=== PATIENT | female | born 1995 | race Caucasian/White ===

== ENCOUNTER 2016-10-30 07:52 | Emergency (ER) | payer BC ==
[~2016-10-30] VITALS: Ht 154.9 cm; Wt 62.0 kg
[2016-10-30 07:55] VITALS: BP 138/74; PULSE 99; RESP 16; TEMP 98.1; O2SAT 100
[2016-10-30 08:04] VITALS: BP 125/64; PULSE 96; RESP 16; TEMP 98; O2SAT 98
[2016-10-30] MEDS ORDERED: PROG200C PO (08:16)
[2016-10-30] MEDS ORDERED: SODIUM CHLOR 0.9% 1000 ML INJ 1,000 ML IV ONE (08:30)
[2016-10-30 08:42] LABS: BASOPHIL # 0.2 TH/MM3 (0-0.2); EOSINOPHIL # 0.9 TH/MM3 (0-0.4); EOSINOPHIL % 8.3 % (0.0-4.0); HEMATOCRIT 37.5 % (35.0-46.0); HEMO FLAGS DIFF FINAL; LYMPH % 25.4 % (9.0-44.0); LYMPHOCYTE # 2.6 TH/MM3 (1.0-4.8); MEAN CELL VOLUME 84.2 FL (80.0-100.0); MEAN CORPUSCULAR HEMOGLOBIN 28.3 PG (27.0-34.0); MEAN CORPUSCULAR HGB CONC 33.6 % (32.0-36.0); MONO % 6.2 % (0.0-8.0); NEUT % 58.1 % (16.0-70.0); PLATELET COUNT 212 TH/MM3 (150-450); RED BLOOD COUNT 4.46 MIL/MM3 (4.00-5.30); RED CELL DISTRIBUTION WIDTH 12.8 % (11.6-17.2); WHITE BLOOD COUNT 10.4 TH/MM3 (4.0-11.0)
[2016-10-30 08:56] LABS: BICARBONATE 23.7 MEQ/L (21.0-32.0); POTASSIUM 3.5 MEQ/L (3.5-5.1)
[2016-10-30 09:00] VITALS: BP 112/78; PULSE 86; RESP 16; O2SAT 100
--- NOTE | 2016-10-30 09:16 | PD ---
HPI Chief Complaint: Syncope/Near-Syncope Time Seen by Provider: 08:17 Travel History International Travel<30 days: No Contact w/Intl Traveler<30days: No Traveled to known affect area: No History of Present Illness HPI The 21 year-old woman who presents to the emergency department after apparent syncopal episode at work. 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 Coworkers called her and lowered her to the ground. Did not reportedly strike her head. Patient does not recall the incident, but woke up with people standing around her. She's not had previous similar symptoms. She's not been feeling well because she's been having significant morning sickness with vomiting and retching for the past couple weeks. She went to an urgent care recently and was given a prescription for Reglan as well as for pyridoxine/Unisom. Pyridoxine/Unisom is not work for in the past, and she talked to family members she said she should not take the Reglan while she was . History Past Medical History Medical History: Denies Significant Hx LMP: 08/31/16 : 2 Para: 0 Past Surgical History Surgical History: No Previous Surgery Social History Alcohol Use: No Tobacco Use: No Allergies-Medications (Allergen,Severity, Reaction): Coded Allergies: Codeine (Verified Allergy, Intermediate, 10/30/16) vomiting Reported Meds & Prescriptions Reported Meds & Active Scripts Active Reported Progesterone Micronized 200 Mg Cap 200 Mg PO HS Review of Systems Except as stated in HPI: all other systems reviewed are Neg Physical Exam Narrative GENERAL: Well-appearing 21 year-old woman, no acute distress. SKIN: Warm and dry. CARDIOVASCULAR: Regular rate and rhythm. No murmur appreciated. RESPIRATORY: No accessory muscle use. Clear to auscultation. Breath sounds equal bilaterally. GASTROINTESTINAL: Abdomen soft, non-tender, nondistended. Hepatic and splenic margins not palpable. MUSCULOSKELETAL: No obvious deformities. No clubbing. No cyanosis. No edema. NEUROLOGICAL: Awake and alert. No obvious cranial nerve deficits. Motor grossly within normal limits. Normal speech. PSYCHIATRIC: Appropriate mood and affect; insight and judgment normal. Data Data Last Documented VS Vital Signs Date Time Temp Pulse Resp B/P Pulse Ox O2 Delivery O2 Flow Rate FiO2 10/30/16 08:11 16 100 Room Air 10/30/16 08:04 98.0 96 125/64 Orders Electrocardiogram (10/30/16 ) Complete Blood Count With Diff (10/30/16 08:17) Basic Metabolic Panel (Bmp) (10/30/16 08:17) Ed Poc Ultrasound (10/30/16 ) Urinalysis - C+S If Indicated (10/30/16 08:17) Iv Access Insert/Monitor (10/30/16 08:17) Sodium Chlor 0.9% 1000 Ml Inj (Ns 1000 M (10/30/16 08:30) Labs Laboratory Tests Test 10/30/16 10/30/16 08:15 08:55 White Blood Count 10.4 TH/MM3 Red Blood Count 4.46 MIL/MM3 Hemoglobin 12.6 GM/DL Hematocrit 37.5 % Mean Corpuscular Volume 84.2 FL Mean Corpuscular Hemoglobin 28.3 PG Mean Corpuscular Hemoglobin 33.6 % Concent Red Cell Distribution Width 12.8 % Platelet Count 212 TH/MM3 Mean Platelet Volume 10.3 FL Neutrophils (%) (Auto) 58.1 % Lymphocytes (%) (Auto) 25.4 % Monocytes (%) (Auto) 6.2 % Eosinophils (%) (Auto) 8.3 % Basophils (%) (Auto) 2.0 % Neutrophils # (Auto) 6.0 TH/MM3 Lymphocytes # (Auto) 2.6 TH/MM3 Monocytes # (Auto) 0.6 TH/MM3 Eosinophils # (Auto) 0.9 TH/MM3 Basophils # (Auto) 0.2 TH/MM3 CBC Comment DIFF FINAL Differential Comment Sodium Level 138 MEQ/L Potassium Level 3.5 MEQ/L Chloride Level 105 MEQ/L Carbon Dioxide Level 23.7 MEQ/L Anion Gap 9 MEQ/L Blood Urea Nitrogen 10 MG/DL Creatinine 0.63 MG/DL Estimat Glomerular Filtration 120 ML/MIN Rate Random Glucose 77 MG/DL Calcium Level 8.7 MG/DL Urine Color LIGHT-YELLOW Urine Turbidity CLEAR Urine pH 6.5 Urine Specific [place] 1.007 Urine Protein NEG mg/dL Urine Glucose (UA) NEG mg/dL Urine Ketones NEG mg/dL Urine Occult Blood NEG Urine Nitrite NEG Urine Bilirubin NEG Urine Urobilinogen LESS THAN 2.0 MG/DL Urine Leukocyte Esterase NEG Urine RBC 1 /hpf Urine WBC 1 /hpf Urine Squamous Epithelial 1 /hpf Cells Urine Bacteria RARE /hpf Urine Mucus FEW /lpf Microscopic Urinalysis Comment CULT NOT INDICATED MDM Medical Decision Making Medical Screen Exam Complete: Yes Emergency Medical Condition: Yes Interpretation(s) My review of EKG: Normal sinus rhythm at a rate of 85, normal axis, normal intervals, no acute ischemia. LABS: CBC is unremarkable. BMP is unremarkable. UA is unremarkable. Differential Diagnosis Syncope, lightheadedness, anemia, UTI, electrolyte abnormality, ectopic, other Narrative Course Medical decision making INITIAL: This a 21-year-old woman who presents to the emergency department after apparent syncopal episode. She's been on monitor with nausea and vomiting in the setting of morning sickness. Bedside ultrasound is reassuring. No cramping bleeding or vaginal discharge or other evidence of problems . No shortness of breath or leg swelling to suggest PE. We'll check labs, EKG, likely discharge. Procedures Procedure Narrative Point of care ultrasound: Focus transabdominal ultrasounds performed by me at the bedside to evaluate for well-being. [place]gu[place] intrauterine was identified at 8 weeks 5 days by crown rump length. heart rate was measured at 188. Diagnosis Primary Impression: Syncope and collapse Additional Impression: Nausea and vomiting during prior to 22 weeks gestation Additional Instructions: Use Zofran if needed for nausea or vomiting. Drink plenty of fluids stay well-hydrated. 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 Return to the emergency department for any new or worsening symptoms. Med/Other Pt SpecificInfo: Prescription(s) given Scripts Ondansetron Odt (Zofran Odt)4 Mg Tab4 Mg SL Q8HR PRN (Nausea/Vomiting) #15 TAB May substitute non-ODT form. Prov:Marcelino Houser MD 10/30/16 Disposition: 01 DISCHARGE HOME Condition: Stable Marcelino Houser MD Oct 30, 2016 09:15
[2016-10-30 09:26] LABS: BACTERIA, URINE RARE /hpf; BLOOD, URINE NEG (NEG); COMMENT (UR) CULT NOT INDICATED; CULTURE IF INDICATED CULT NOT INDICATED; GLUCOSE,URINE NEG (NEG); KETONE, URINE NEG (NEG); MUCUS URINE FEW /lpf (OCC); NITRITE,URINE NEG (NEG); PH, URINE 6.5 (5.0-8.5); SQUAMOUS EPITHELIAL CELL URINE 1 /hpf (0-5); URINE COLOR LIGHT-YELLOW (YELLW/STRAW)
[2016-10-30] MEDS ORDERED: ZOFR4TAB3 SL (09:35)
[2016-10-30 10:05] VITALS: BP 108/71
--- NOTE | 2016-10-30 21:47 | EKG ---
Date Performed: 10/30/2016 Time Performed: 08:39:56 PTAGE: 21 years EKG: Sinus rhythm NORMAL ECG NO PREVIOUS TRACING DOCTOR: Kirk So Interpretating Date/Time 10/30/2016 21:47:00
== END 2016-10-30 10:10 | disposition home or self-care (01) ==
LOC: NEPC 07:52
DX: O21.9 Vomiting of pregnancy, unspecified (principal); R55 Syncope and collapse; Z3A.08 8 weeks gestation of pregnancy
CPT/HCPCS: 80048; 81001; 85025; 93005; 99284; J7030

== ENCOUNTER 2016-12-02 09:46 | Emergency (ER) | payer BC, OTHER ==
[~2016-12-02] VITALS: Ht 154.9 cm; Wt 62.0 kg
[~2016-12-02 09:46] MED LIST: PROG200C PO; ZOFR4TAB3 SL
[2016-12-02 09:59] VITALS: BP 128/87; PULSE 97; RESP 16; TEMP 98.9; O2SAT 100
[2016-12-02] MEDS ORDERED: SODIUM CHLOR 0.9% 1000 ML INJ 1,000 ML IV ONE ×3 (10:17→12:15)
--- NOTE | 2016-12-02 10:23 | PD ---
HPI Chief Complaint: Syncope/Near-Syncope Time Seen by Provider: 10:08 Travel History International Travel<30 days: No Contact w/Intl Traveler<30days: No Traveled to known affect area: No History of Present Illness HPI The patient is a 21-year-old female who presents emergency Department after syncopal episode. The patient states she is currently 13 weeks , was standing in line earlier today for SSI for work, when she had a syncopal episode. The patient states she apparently fell backwards and struck her head. The patient thinks her mother that a loss of consciousness, does not recall the events, however, was advised by bystanders she may have had a seizure. The patient does complain of a mild headache with the bumper the posterior aspect of her head but denies any neck pain. She does state she is currently 13 weeks denies current abdominal pain. She does note a history of hyperemesis gravidarum with significant nausea and vomiting and dehydration during the course of her . The patient states she had a syncopal episode one month ago similar to to the current episode of syncope. The patient states she tried to eat cereal this morning, was standing in line when she suddenly became lightheaded, dizzy, and symptomatic prior to the syncopal episode. She denies any known history of arrhythmia or seizure. She denies any current lower abdominal pain or vaginal bleeding. PFSH Past Medical History ?: LMP: 13 WEEKS : 2 Para: 0 Social History Alcohol Use: No Tobacco Use: No Substance Use: No Allergies-Medications (Allergen,Severity, Reaction): Coded Allergies: Codeine (Verified Allergy, Intermediate, 12/02/16) vomiting Reported Meds & Prescriptions Reported Meds & Active Scripts Active Zofran Odt (Ondansetron Odt) 4 Mg Tab 4 Mg SL Q8HR PRN May substitute non-ODT form. Reported Progesterone Micronized 200 Mg Cap 200 Mg PO HS Review of Systems Except as stated in HPI: all other systems reviewed are Neg General / Constitutional: No: Fever HENT: Positive: Lightheadedness Cardiovascular: Positive: Syncope, No: Chest Pain or Discomfort Respiratory: No: Shortness of Breath Gastrointestinal: Positive: Nausea, Vomiting, No: Abdominal Pain Genitourinary: No: Vaginal Bleeding Musculoskeletal: Positive: Weakness Neurologic: Positive: Weakness, Dizziness, Syncope Physical Exam Narrative GENERAL: Awake, alert, pleasant 21-year-old female who appears her stated age and is in no acute respiratory distress. SKIN: Cephalgia hematoma over the right superior occipital region. HEAD: Cephalgia hematoma over the right superior occipital region. EYES: Pupils equal and round. 4 mm bilateral and reactive. ENT: No nasal bleeding or discharge. Mucous membranes pink and moist. NECK: Trachea midline. No JVD. No tenderness of the midline of the neck. Full range of motion with flexion, extension, and rotation. CARDIOVASCULAR: Regular rate and rhythm. No murmur appreciated. RESPIRATORY: No accessory muscle use. Clear to auscultation. Breath sounds equal bilaterally. GASTROINTESTINAL: Abdomen soft, non-tender, nondistended. No rebound tenderness. Back: No CVA tenderness. No tenderness of the thoracic or lumbar vertebra. MUSCULOSKELETAL: No obvious deformities. No clubbing. No cyanosis. No edema. NEUROLOGICAL: Awake and alert. No obvious cranial nerve deficits. Motor grossly within normal limits. Normal speech. Nonfocal. Oriented 4. Follows commands without difficulty. PSYCHIATRIC: Appropriate mood and affect; insight and judgment normal. Data Data Last Documented VS Vital Signs Date Time Temp Pulse Resp B/P Pulse Ox O2 Delivery O2 Flow Rate FiO2 12/02/16 10:37 82 20 117/68 98 20 115/65 108 20 115/70 12/02/16 09:59 98.9 100 Orders Electrocardiogram (12/02/16 10:17) Complete Blood Count With Diff (12/02/16 10:17) Comprehensive Metabolic Panel (12/02/16 10:17) Magnesium (Mg) (12/02/16 10:17) Urinalysis - C+S If Indicated (12/02/16 10:17) Ecg Monitoring (12/02/16 10:17) Iv Access Insert/Monitor (12/02/16 10:17) Oximetry (12/02/16 10:17) Ondansetron Inj (Zofran Inj) (12/02/16 10:30) Sodium Chloride 0.9% Flush (Ns Flush) (12/02/16 10:30) Sodium Chlor 0.9% 1000 Ml Inj (Ns 1000 M (12/02/16 10:17) Orthostatic Vital Signs (12/02/16 10:17) Ed Poc Ultrasound (12/02/16 10:17) Sodium Chlor 0.9% 1000 Ml Inj (Ns 1000 M (12/02/16 10:30) Urine Culture (12/02/16 11:00) Labs Laboratory Tests Test 12/02/16 12/02/16 10:20 11:00 White Blood Count 14.0 TH/MM3 Red Blood Count 4.43 MIL/MM3 Hemoglobin 12.3 GM/DL Hematocrit 37.1 % Mean Corpuscular Volume 83.9 FL Mean Corpuscular Hemoglobin 27.8 PG Mean Corpuscular Hemoglobin 33.1 % Concent Red Cell Distribution Width 13.4 % Platelet Count 235 TH/MM3 Mean Platelet Volume 10.0 FL Neutrophils (%) (Auto) 63.8 % Lymphocytes (%) (Auto) 24.7 % Monocytes (%) (Auto) 5.3 % Eosinophils (%) (Auto) 5.1 % Basophils (%) (Auto) 1.1 % Neutrophils # (Auto) 8.9 TH/MM3 Lymphocytes # (Auto) 3.5 TH/MM3 Monocytes # (Auto) 0.7 TH/MM3 Eosinophils # (Auto) 0.7 TH/MM3 Basophils # (Auto) 0.2 TH/MM3 CBC Comment DIFF FINAL Differential Comment Sodium Level 138 MEQ/L Potassium Level 3.8 MEQ/L Chloride Level 105 MEQ/L Carbon Dioxide Level 23.7 MEQ/L Anion Gap 9 MEQ/L Blood Urea Nitrogen 9 MG/DL Creatinine 0.53 MG/DL Estimat Glomerular Filtration 147 ML/MIN Rate Random Glucose 76 MG/DL Calcium Level 9.1 MG/DL Magnesium Level 2.1 MG/DL Total Bilirubin 0.3 MG/DL Aspartate Amino Transf 18 U/L (AST/SGOT) Alanine Aminotransferase 18 U/L (ALT/SGPT) Alkaline Phosphatase 64 U/L Total Protein 7.6 GM/DL Albumin 3.8 GM/DL Urine Color YELLOW Urine Turbidity HAZY Urine pH 6.5 Urine Specific [place] 1.010 Urine Protein NEG mg/dL Urine Glucose (UA) NEG mg/dL Urine Ketones NEG mg/dL Urine Occult Blood NEG Urine Nitrite NEG Urine Bilirubin NEG Urine Urobilinogen LESS THAN 2.0 MG/DL Urine Leukocyte Esterase NEG Urine RBC 1 /hpf Urine WBC 2 /hpf Urine Squamous Epithelial 3 /hpf Cells Urine Bacteria MOD /hpf Urine Mucus FEW /lpf Microscopic Urinalysis Comment CULTURE INDICATED MDM Medical Decision Making Medical Screen Exam Complete: Yes Emergency Medical Condition: Yes Medical Record Reviewed: Yes Interpretation(s) EKG reveals normal sinus rhythm with a rate of 85. No evidence of WPW or Brugada syndrome. Laboratory Tests Test 12/02/16 12/02/16 10:20 11:00 White Blood Count 14.0 TH/MM3 Red Blood Count 4.43 MIL/MM3 Hemoglobin 12.3 GM/DL Hematocrit 37.1 % Mean Corpuscular Volume 83.9 FL Mean Corpuscular Hemoglobin 27.8 PG Mean Corpuscular Hemoglobin 33.1 % Concent Red Cell Distribution Width 13.4 % Platelet Count 235 TH/MM3 Mean Platelet Volume 10.0 FL Neutrophils (%) (Auto) 63.8 % Lymphocytes (%) (Auto) 24.7 % Monocytes (%) (Auto) 5.3 % Eosinophils (%) (Auto) 5.1 % Basophils (%) (Auto) 1.1 % Neutrophils # (Auto) 8.9 TH/MM3 Lymphocytes # (Auto) 3.5 TH/MM3 Monocytes # (Auto) 0.7 TH/MM3 Eosinophils # (Auto) 0.7 TH/MM3 Basophils # (Auto) 0.2 TH/MM3 CBC Comment DIFF FINAL Differential Comment Sodium Level 138 MEQ/L Potassium Level 3.8 MEQ/L Chloride Level 105 MEQ/L Carbon Dioxide Level 23.7 MEQ/L Anion Gap 9 MEQ/L Blood Urea Nitrogen 9 MG/DL Creatinine 0.53 MG/DL Estimat Glomerular Filtration 147 ML/MIN Rate Random Glucose 76 MG/DL Calcium Level 9.1 MG/DL Magnesium Level 2.1 MG/DL Total Bilirubin 0.3 MG/DL Aspartate Amino Transf 18 U/L (AST/SGOT) Alanine Aminotransferase 18 U/L (ALT/SGPT) Alkaline Phosphatase 64 U/L Total Protein 7.6 GM/DL Albumin 3.8 GM/DL Urine Color YELLOW Urine Turbidity HAZY Urine pH 6.5 Urine Specific [place] 1.010 Urine Protein NEG mg/dL Urine Glucose (UA) NEG mg/dL Urine Ketones NEG mg/dL Urine Occult Blood NEG Urine Nitrite NEG Urine Bilirubin NEG Urine Urobilinogen LESS THAN 2.0 MG/DL Urine Leukocyte Esterase NEG Urine RBC 1 /hpf Urine WBC 2 /hpf Urine Squamous Epithelial 3 /hpf Cells Urine Bacteria MOD /hpf Urine Mucus FEW /lpf Microscopic Urinalysis Comment CULTURE INDICATED Differential Diagnosis Differential diagnosis includes closed head injury, cephalgia hematoma, syncope , dehydration, orthostatic hypotension, arrhythmia, seizure. Narrative Course IV was established, labs are drawn and sent, and the patient was placed on cardiac telemetry monitoring and continuous pulse oximetry monitoring. EKG was ordered and interpreted. I reviewed the patient's EMR from her previous syncopal episode. The patient does have a cephalic hematoma the right superior occipital region, but is nonfocal on exam and does not currently taking anticoagulants. As the patient is currently 13 weeks , no initial CT was ordered, patient will be evaluated and monitored neurologically in the emergency department. The patient was administered 2 L of IV fluids and electrolytes were reevaluated. Cervical spine was cleared at bedside. EKG is unremarkable, no evidence of WPW, Brugada syndrome, or arrhythmia. Orthostatic vital signs were positive or the patient's heart rate went from 80 to lie supine to 108 standing, however, blood pressure was stable. A bedside ultrasound was performed which reveals an IUP, positive movement, activity, and heart rate greater than 120. Electrolytes are unremarkable. The patient be discharged home, was administered one more liter of IV fluids. Procedures Procedure Narrative A bedside ultrasound was performed using a curvilinear probe. There was positive activity, movement, and heart rate greater than 120. The patient was shown the ultrasound as it was performed real-time. There is no obvious complications and the patient tolerated the procedure without difficulty. Diagnosis Primary Impression: Syncope and collapse Additional Impression: Nausea and vomiting during prior to 22 weeks gestation Patient Instructions: General Instructions Additional Instructions: Plenty of fluids to stay hydrated. Follow-up with your senior python developer and her primary physician. Return if symptoms worsen or progress. Disposition: 01 DISCHARGE HOME Condition: Stable Guido Keene MD Dec 02, 2016 10:23
[2016-12-02] MEDS ORDERED: SODIUM CHLORIDE 0.9% FLUSH 10 ML FLUSH IVF PRN (10:30)
[2016-12-02] MEDS ORDERED: ONDANSETRON HCL 4 MG/2 ML VIAL IVP ONE (10:30)
[2016-12-02 10:37] VITALS: BP_SYST 115; BP_SYST 117; BP_DIAS 65; BP_DIAS 68; BP_DIAS 70; RESP 20
[2016-12-02 10:51] LABS: AUTOMATED NEUTROPHIL # 8.9 TH/MM3 (1.8-7.7); BASOPHIL # 0.2 TH/MM3 (0-0.2); BASOPHIL % 1.1 % (0.0-2.0); EOSINOPHIL # 0.7 TH/MM3 (0-0.4); EOSINOPHIL % 5.1 % (0.0-4.0); HEMATOCRIT 37.1 % (35.0-46.0); HEMO FLAGS DIFF FINAL; LYMPH % 24.7 % (9.0-44.0); LYMPHOCYTE # 3.5 TH/MM3 (1.0-4.8); MEAN CELL VOLUME 83.9 FL (80.0-100.0); MEAN CORPUSCULAR HEMOGLOBIN 27.8 PG (27.0-34.0); MEAN CORPUSCULAR HGB CONC 33.1 % (32.0-36.0); MONO % 5.3 % (0.0-8.0); NEUT % 63.8 % (16.0-70.0); PLATELET COUNT 235 TH/MM3 (150-450); RED BLOOD COUNT 4.43 MIL/MM3 (4.00-5.30); RED CELL DISTRIBUTION WIDTH 13.4 % (11.6-17.2)
[2016-12-02 11:08] LABS: ALKALINE PHOSPHATASE 64 U/L (45-117); TOTAL BILIRUBIN ADULT 0.3 MG/DL (0.2-1.0)
[2016-12-02 11:09] LABS: ALT (GPT) 18 U/L (9-42); ANION GAP 9 MEQ/L (5-15); AST (GOT) 18 U/L (16-38); BICARBONATE 23.7 MEQ/L (21.0-32.0); BLOOD UREA NITROGEN 9 MG/DL (7-18); CHLORIDE 105 MEQ/L (98-107); GLOMERULAR FILTRATION RATE 147 ML/MIN (>89); MAGNESIUM 2.1 MG/DL (1.5-2.5); POTASSIUM 3.8 MEQ/L (3.5-5.1); SODIUM (NA) 138 MEQ/L (136-145)
[2016-12-02 11:43] LABS: BACTERIA, URINE MOD /hpf; BLOOD, URINE NEG (NEG); COMMENT (UR) CULTURE INDICATED; CULTURE IF INDICATED CULTURE INDICATED; GLUCOSE,URINE NEG (NEG); KETONE, URINE NEG (NEG); MUCUS URINE FEW /lpf (OCC); NITRITE,URINE NEG (NEG); PH, URINE 6.5 (5.0-8.5); SQUAMOUS EPITHELIAL CELL URINE 3 /hpf (0-5); URINE COLOR YELLOW (YELLW/STRAW)
[2016-12-02 12:47] VITALS: BP 109/55; PULSE 95; RESP 20; O2SAT 100
--- NOTE | 2016-12-03 21:58 | EKG ---
Date Performed: 12/02/2016 Time Performed: 10:30:42 PTAGE: 21 years EKG: Sinus rhythm POSSIBLE RIGHT VENTRICULAR CONDUCTION DELAY Since previous tracing, no significant change noted [facility] ECG PREVIOUS TRACING : 10/30/2016 08.39 DOCTOR: Lisha Sanon Interpretating Date/Time 12/03/2016 21:57:09
== END 2016-12-02 13:15 | disposition home or self-care (01) ==
LOC: NEPE 09:46
DX: O26.892 Other specified pregnancy related conditions, second trimester (principal); R55 Syncope and collapse; O21.0 Mild hyperemesis gravidarum; Z3A.22 22 weeks gestation of pregnancy
CPT/HCPCS: 80053; 81001; 83735; 85025; 87086; 93005; 96361; 96374; 99284; J2405; J7030

== ENCOUNTER 2016-12-03 10:41 | Emergency (ER) | payer BC, OTHER ==
[2016-12-03 10:42] VITALS: BP 132/80; PULSE 118; RESP 16; TEMP 98.2; O2SAT 98
== END 2016-12-03 13:12 | disposition left against medical advice (07) ==
LOC: NEPB 10:41 → NED 13:12
DX: Z53.21 Procedure and treatment not carried out due to patient leaving prior to being seen by health care provider (principal)
CPT/HCPCS: 99281